=== PATIENT | male | born 1975 | race Caucasian/White ===

== ENCOUNTER → 2018-11-12 09:21 | Outpatient (CLI) | payer BC ==
--- NOTE | 2018-11-13 17:17 | ST ---
PATIENT:BETH ALANIS MEDICAL RECORD: [id number] SEX: M LOCATION:[facility] ORDER #: ADMISSION DATE: 11/12/18 AGE OF PATIENT: 43 REFERRING PHYSICIAN: INTERPRETING PHYSICIAN: UZMA DASH MD DATE OF SERVICE: 11/12/2018 PROCEDURE: Nuclear stress test. INDICATION: Angina, hypertension, and hyperlipidemia. He was exercised on standard Beto protocol for 7 minutes 30 seconds achieving greater than 85% max target heart rate response with 33 mCi of sestamibi injected at peak stress, 11 mCi used previously for rest images. FINDINGS: Gated SPECT reveals preserved ejection fraction at 62% with good wall motion and thickening and brightening throughout all segments. SPECT imaging Cardiolite was used as myocardial fusion agent. There is homogeneous uptake throughout all segments at rest and stress with no evidence of inducible ischemia or previous infarction. OVERALL IMPRESSION: 1. This is a normal nuclear stress test with no evidence of inducible ischemia or previous infarction. 2. Gated SPECT reveals a preserved ejection fraction at 62%. In this patient with ongoing symptomatology, the current scan does not suggest the presence of hemodynamically significant coronary artery disease. Evaluate noncardiac etiology of chest pain. TRANSINT:[id number] Voice Confirmation ID: [id number] DOCUMENT ID: [id number] UZMA DASH MD at 1717 CC: ERIN MCMILLAN [id number] DICTATION DATE: 11/13/18 1017 RESIDENT MEDICAL OFFICER: 11/13/18 1145 DEP CLI 11/12/[address] [address]
== END | disposition home or self-care (01) ==
LOC: D.HCCARDIO 09:21
PROVIDERS: ATTEND Internal Medicine Cardiovascular Disease
DX: I20.9 Angina pectoris, unspecified (principal)